=== PATIENT | male | born 2005 | race Caucasian/White ===

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

== ENCOUNTER 2025-02-12 13:02 | Emergency (ER) | payer OTHER, SELFPAY ==
[2025-02-12 13:07] VITALS: BP 132/70; PULSE 85; RESP 14; TEMP 36.4; O2SAT 98; BMI 39.0
--- NOTE | 2025-02-12 13:09 | ED.GENADULT ---
HPI - General Adult General Chief complaint: Skin/Abscess/Foreign Body Stated complaint: Pain on left leg and red dots on both legs Time Seen by Provider: 02/12/25 16:48 Source: patient Mode of arrival: ambulatory Limitations: no limitations History of Present Illness ED Provider: Merrick Hassan HPI narrative: 19 yold male presents to the ED for presents to the ED for bilateral lower extremity rash for one week. Patient denies any leg pain, leg swelling, fever, chills, recent trauma, recent travel, lip swelling, shortness of breath, tongue swelling, or any exposure to any known allergens. She denies any chest pain or shortness of breath. Related Data Home Medications ?Medication ?Instructions ?Recorded ?Confirmed sodium chloride 0.65 % nasal spray spray intranasal 09/22/23 09/22/23 aerosol (Deep Sea Nasal) Previous Rx's ?Medication ?Instructions ?Recorded carbamide peroxide 6.5 % ear drops 10 drp otic (ears) Q12H 4 days #15 09/03/23 (Debrox) mL loratadine 10 mg tablet (Allergy 10 mg PO DAILY #30 tabs 09/03/23 Relief (loratadine)) sodium chloride 0.65 % nasal drops 2 drp intranasal Q2H PRN dry nasal 09/03/23 ([place] Saline) passages; stuffy nose #50 mL albuterol sulfate 90 mcg/actuation 2 puff inhalation Q4-6H PRN 09/18/23 aerosol inhaler shortness of breath or wheezing #8.5 grams benzonatate 200 mg capsule 200 mg PO TID PRN cough 7 days #21 09/18/23 caps famotidine 40 mg tablet 40 mg PO BEDTIME #30 tabs 09/22/23 Allergies Allergy/AdvReac Type Severity Reaction Status Date / Time environmental allergies Allergy Intermediate Nasal Verified 02/12/25 13:07 congestion Review of Systems Review of Systems: Rash on bilateral lower extremities Yes all other systems are reviewed and are negative PMFSH Past Medical History Medical History Allergic rhinitis Social History Social History Household Members Other:: mom dad bro sis younger Housing: Apartment Advance Directives: No Advance Directives Information Provided: No Physical Exam ED Vital Signs: Vital Signs - 24 hr 02/12/25 13:07 02/12/25 18:06 02/12/25 19:31 Temperature 97.6 F 98.2 F Pulse Rate 85 75 75 Respiratory Rate 14 18 18 Blood Pressure 132/70 132/84 132/84 Pulse Oximetry 98 100 100 Oxygen Delivery Method Room Air Room Air Room Air BMI result Body Mass Index 39.0 Const General: cooperative, healthy appearing, comfortable, no acute distress, well developed, alert, awake and Physically active Orientation/consciousness: patient oriented x3 [facility] Head: Yes normal to inspection, Yes No palpable skull fracture present, Yes normocephalic and Yes atraumatic Eyes General: appearance normal, both eyes and all related structures Neck Neck: Yes normal visual inspection, Yes full ROM, Yes no lymphadenopathy, Yes no meningeal signs, Yes trachea midline, Yes supple, No anterior neck swelling and No tender Chest Chest palpation & inspection: normal inspection of the chest and normal palpation of entire chest wall Resp Effort & Inspection: normal respiratory effort and able to speak in complete sentences Auscultation: clear to auscultation bilaterally Cardio Jugular venous distension: no JVD Heart sounds: S1 normal heart sound present and S2 normal heart sound present GI Inspection: Yes normal to inspection Palpation (GI): Soft to palpation, not firm, nontender, no guarding and not rigid General: Yes no CVA tenderness Back/Spine/Pelvis Back: no CVA tenderness and No back tenderness Skin General skin exam: no rashes or lesions noted, elasticity normal and turgor normal Neuro General: patient oriented x3, gait normal, tone normal, moves all extremities, Normal light touch and pain sensation, no meningeal signs, no focal motor deficits, CN's II-XI intact bilaterally and normal sensation to monofilament Extrem Other: Negative for tenderness on palpation. Negative for weeping discharge or foul odor. Negative for any tenderness or calf pain. Negative for any thigh tenderness on palpation. Negative for any ecchymosis, crepitus, deformity, hotness, or coldness. Patient denies rash being itchy. Vascular motor neuro exam intact General: Yes normal to inspection and Yes full ROM Psych Appearance: grossly normal, well kempt and not disheveled Course Course Course Narrative: This is a rapid medical exam performed by Jyotsna Lemus NP: Additional HPI, ROS, PE not included below will be deferred to primary provider. Patient is a 19-year-old male presenting to the ED with complaint of left upper leg pain as well as rash to bilateral lower legs for the past week. Denies fevers/chills/body aches. Denies any prior history of IV drug use. Denies chest pain or dyspnea. States rash is not pruritic, not painful. Plan: Labs Medical Decision Making Medical Decision Making [facility] Narrative: 19-year-old male presents to ED for bilateral lower extremity non itchy rash. Patient denies any pain anywhere in the body. Patient denies any insect bite. Rash appears like petechiae. Coags are normal. Labs normal. ESR CRP added. 7:20pm: ESR CRP came back negative. Patient informed to follow up with primary care provider. Not suspecting cellulitis, DVT, osteomyelitis, necrotizing fasciitis, arterial occlusion, compartment syndrome, or any other life-threatening etiology. Differential Diagnosis Differential Diagnoses: The differential diagnosis associated with the presentation includes (Petechiae, purpura, cellulitis, hives) Admission/Observation Consideration of admission/observation: Escalation of care including admission/observation considered Lab Data [facility] Lab Attestation statement: I reviewed the patient's lab results. 02/12/25 13:44 02/12/25 13:44 Labs: Lab Results 02/12/25 Range/Units 13:44 WBC 7.6 (4.8-10.8) X10*3/uL RBC 4.92 (4.60-5.80) X10*6/uL Hgb 13.1 L (14.0-18.0) g/dl Hct 40.4 L (42.0-52.0) % MCV 82.1 (80.0-98.0) fL MCH 26.6 L (27.0-33.0) pg MCHC 32.4 (31.0-36.0) g/dl RDW 13.1 (11.0-16.0) % Plt Count 294 (160-400) X10*3/uL MPV 11.0 (9.4-12.4) fL Immature Gran % (Auto) 0.5 H (0.0-0.4) % Neut % (Auto) 64.7 (45-73) % Lymph % (Auto) 26.5 (20-40) % Eddy % (Auto) 6.2 (2-11) % Eos % (Auto) 1.3 (0-4) % Baso % (Auto) 0.8 (0-2) % Lymph # (Auto) 2.0 (1.2-4.9) X10*3/uL Eddy # (Auto) 0.5 (0.1-1.2) X10*3/uL Eos # (Auto) 0.1 (0.0-0.4) X10*3/uL Baso # (Auto) 0.1 (0.0-0.2) X10*3/uL Abs Immat Gran (auto) 0.04 H (0.00-0.03) X10*3/uL Absolute Neuts (auto) 4.9 (2.0-8.3) x10*3/uL Absolute Nucleated RBC 0.000 (0.0-0.012) X10*3/uL Nucleated RBC % (auto) 0.0 (0.0-0.2) /100WBC ESR 10 (0-15) MM/HR PT 12.2 (10.9-12.4) SEC INR 1.1 (0.9-1.1) Sodium 140 (135-145) mmol/L Potassium 4.4 (3.3-5.1) mmol/L Chloride 107 (96-108) mmol/L Carbon Dioxide 27 (22-29) mmol/L Anion Gap 10 L (12-20) BUN 10 (9-16) mg/dL Creatinine 0.61 (0.5-1.4) mg/dL Estim Creat Clear Calc 233.6 Estimated GFR > 60 Random Glucose 106 (60-115) mg/dL Calcium 9.3 (8.4-10.2) mg/dL Total Bilirubin 0.2 (0.0-1.0) mg/dL AST 17 (5-37) U/L ALT 15 (0-40) U/L Alkaline Phosphatase 95 (39-117) U/L C-Reactive Protein 0.21 (< or = 0.50) mg/dL Total Protein 7.3 (6.5-8.0) g/dL Albumin 4.5 (3.5-5.0) g/dL Independent Historian Clinical information obtained from an independent historian. History obtained from or confirmed by: Other (patient) Discharge Plan Discharge Clinical Impression: Rash, Petechiae Patient Disposition: Home, Self-Care Instructions: Acute Rash (ED) Additional Instructions: Recommend follow-up with primary care provider. Your labs came back reassuring. Return to the ED immediately for worsening rash, swelling of extremities, red streaks, pus discharge, foul odor, fever, chills, calf pain, bluish black discoloration, chest pain, shortness of breath, or any other concerning symptoms. Prescriptions: No Action albuterol sulfate 90 mcg/actuation HFA aerosol inhaler 2 puff inhalation Q4-6H PRN (Reason: shortness of breath or wheezing) Qty: 8.5 0RF benzonatate 200 mg capsule 200 mg PO TID PRN (Reason: cough) 7 Days Qty: 21 0RF acetaminophen 325 mg tablet 325 mg PO ONCE Qty: 1 0RF Debrox 6.5 % drops 10 drp otic (ears) Q12H 4 Days Qty: 15 0RF [place] Saline 0.65 % drops 2 drp intranasal Q2H PRN (Reason: dry nasal passages; stuffy nose) Qty: 50 2RF loratadine [Allergy Relief (loratadine)] 10 mg tablet 10 mg PO DAILY Qty: 30 0RF Deep Sea Nasal 0.65 % aerosol,spray intranasal famotidine 40 mg tablet 40 mg PO BEDTIME Qty: 30 0RF Stand Alone Forms: Work/School Release Interventions: ED Discharge Assessment Last Done: 02/12/25 19:31 Discharge Date/Time: 02/12/25 19:31 Print Language: Amharic
[2025-02-12 13:48] LABS: MANUAL DIFF FLAG NO
[2025-02-12 13:51] LABS: Hematocrit 40.4 % (42.0-52.0); Hemoglobin 13.1 g/dl (14.0-18.0); Imm Gran Abs Auto 0.04 X10*3/uL (0.00-0.03); Imm Gran Pct Auto 0.5 % (0.0-0.4); Lymphocytes Absolute Auto 2.0 X10*3/uL (1.2-4.9); Mean Corpuscular HGB Conc 32.4 g/dl (31.0-36.0); Mean Corpuscular Hemoglobin 26.6 pg (27.0-33.0); Mean Corpuscular Volume 82.1 fL (80.0-98.0); NRBC Abs Auto 0.000 X10*3/uL (0.0-0.012); NRBC Pct Auto 0.0 /100WBC (0.0-0.2); Platelet Count 294 X10*3/uL (160-400); Red Blood Count 4.92 X10*6/uL (4.60-5.80); White Blood Count 7.6 X10*3/uL (4.8-10.8)
[2025-02-12 13:55] LABS: INTERNATIONAL NORM RATIO 1.1 (0.9-1.1); Prothrombin Time 12.2 SEC (10.9-12.4)
[2025-02-12 14:04] LABS: Alanine Aminotransferase 15 U/L (0-40); Albumin Level 4.5 g/dL (3.5-5.0); Alkaline Phosphatase 95 U/L (39-117); Anion Gap 10 (12-20); Aspartate Amino Transferase 17 U/L (5-37); Blood Urea Nitrogen 10 mg/dL (9-16); Calcium 9.3 mg/dL (8.4-10.2); Carbon Dioxide 27 mmol/L (22-29); Chloride 107 mmol/L (96-108); Creatinine Clr Calc Pharmacy 233.6; Estimated Glomerular Filt Rate > 60; Potassium 4.4 mmol/L (3.3-5.1); Sodium 140 mmol/L (135-145); Total Protein 7.3 g/dL (6.5-8.0)
--- OUTSIDE RECORDS SUMMARY | 2025-02-12 16:22 | XMS_ITS | Encounter Summary ---
Author Organization [facility] Address [address] [place] [address] Phone Care Team Providers Care Wheel And Pinion Inspector Name Role Phone Verona Saavedra MD Primary Care Provider Encounter Details Date Type Department Care Team (Late st Contact Info) Description 03/28/2013 Documentation [facility] Family Medicine [address] [place], [place] [id number] Family Medicine, Physician [address] [place], [place] [phone] Social History Tobacco Use Types Packs/Day Years Used Date Smoking Tobacco: Never Assessed Sex and Gender Information Value Date Recorded Sex Assigned at Not on file Legal Sex Male 5:15 PM EDT Gender Identity Not on file Sexual Orientation Not on file documented as of this encounter Plan of Treatment Not on file documented as of this encounter Visit Diagnoses Not on filedocumented in this encounter Care Teams Wheel And Pinion Inspector Relationship Specialty Start Date End Date Verona Saavedra MD [address] [facility] [place] [id number] PCP - General 01/02/17 12/27/24 documented as of this encounter
--- OUTSIDE RECORDS SUMMARY | 2025-02-12 16:22 | XMS_ITS | Clinical Summary ---
Author Organization [facility] Address [address] [place] [id number] Phone Care Team Providers Care Central Office Repairer Supervisor Name Role Phone Unavailable Primary Care Provider Unavailabl e Allergies No known active allergies Medications No known medications Active Problems Problem Noted Date Diagnosed Date Need for case management follow-up 04/24/2020 Overview (04/24/2020): STD screen not done due to national shortage of tests Depression 03/10/2018 BMI (body mass index), pediatric, > 99% for age 1204/27/2017 Immunizations Immunization Administration Dates Next Due DTaP 12/18/2009 DTaP / Hep B / IPV 2005,2005, 005 DTaP 5 06/12/2006 HPV Vaccine 9 Valent 04/27/2017,04/25/2016 Hep A, ped/adol 11/09/2006,03/17/2006 Hep B, ped/adol 2005 Hib (HbOC) 06/12/2006,2005 Hib (PRP-T) 2005,2005 IPV 12/18/2009 Influenza, injectable, MDCK, preservative free, quadrivalent 04/25/2016 Influenza, injectable, quadrivalent 04/23/2015,1 06/18/2013 Influenza, injectable, quadr ivalent, preservative free 05/14/2021,04/24/2020,03/09/2018,04/27,06/10/2013 MMR 12/18/2009 MMRV 03/17/2006 Meningococcal Conj (Menactra) MCV4P 05/14/2021,1 06/26/2015 Pneumococcal Conjugate 06/12/2006,2005,2005,05/12 Tdap 04/25/2016 Varicella 12/18/2009 Family History Medical History Relation Name Comments Diabetes Maternal Grandmother Seizures Maternal Grandmother Relation Name Status Comments Brother Jacek Alive Brother: Alive and well Father Jonathan Howard Alive Father: Alive and well Half-Sister Alive Half sister (M) : Alive and well Maternal Grandmother Mother eLigha Howard Alive Mother: Alive a nd well Other No family histo ry of Developmental dislocation of hip, No family history of *Heart Disease, No family history of Autism, No family history of Seizure disorder, No family history of *Sudden /GA under 55, No family history of Strabismus/amblyopia, No family history of Sudden /GA under age 55, No family history of *Dental caries, Family history of *CVA/Stroke, No family history of *Thrombophilia, No family history of Deafness, No family history of Obesity, No family history of ADD/ADHD Sister Kristy Alive Sister: Alive a nd well Social History Tobacco Use Types Packs/Day Years Used Date Smoking Tobacco: Never Hunger/Food Answer Date Recorded In the last 12 months, did y ou or your family ever eat less than you felt you should because there wasn't enough money for food? No 05/14/2021 Stable Housing Answer Date Recorded Are you worried that in the next 2 months you may not have stable housing? No 05/14/2021 Transportation Concerns Answer Date Rec orded In the last 12 months, have you or your family ever had to go without healthcare because you didn't have a way to get there? No 05/14/2021 Hazards in Home Answer Date Recorded Think about the place you li ve. Do you have problems with any of the following? Pests (mice or roaches), mold, no/not working smoke detectors, water leaks, no window guards. No 2020 Financing Utilities Answer Date Recorde d In the last 12 months, has t he electric, gas, oil, or water company threatened to shut off your services in your home? No 05/14/2021 Safety at Home Answer Date Recorded Are you or your family worried about feeling saf e in your home? No 05/14/2021 Outside Support Answer Date Recorded Do you feel that you need mo re support from other people or programs to help you care for yourself or your family? No 05/14/2021 Understanding Health Concerns Answer Da te Recorded Do you need help understandi ng your or your child's healthcare needs (diagnosis, medications, plan, etc.)? No 05/14/2021 Financing Health Concerns Answer Date R ecorded In the last 12 months, was t here a time when your child needed to see a doctor or get medications or supplies but could not because of cost? No 05/14/2021 Missing School or Work Answer Date Uriel rded Did you or your child miss s chool or work because of a health problem that could have been avoided? No 05/14/2021 Sex and Gender Information Value Date Recorded Sex Assigned at Not on file Legal Sex Male 5:15 PM EDT Gender Identity Not on file Sexual Orientation Not on file Last Filed Vital Signs Vital Sign Reading Time Taken Comments Blood Pressure 112/74 05/14/2021 1:28 PM EST Pulse 91 05/14/2021 1:28 PM EST Temperature 36.8 C (98.2 F) 05/14/2021 1:28 PM EST Respiratory Rate - - Oxygen Saturation - - Inhaled Oxygen Concentration - - Weight 115 kg (254 lb 3.2 oz) 05/14/2021 1:28 PM EST Height 172.7 cm (5' 8 ) 05/14/2021 1:28 PM EST Body Mass Index 38.65 05/14/2021 1:28 PM EST Body Mass Index Percentile 99.57% 05/14/2021 1:2 8 PM EST Growth Chart: [facility] (Boys, 2-2 0 Years) Plan of Treatment Health Maintenance Due Date Last Done Comments Men B Vaccine (1 of 2 - Standard) 2021 Influenza Vaccines (#1) 2024 05/14/20, 04/24/2020, 03/09/2018, Additional history exists COVID-19 Vaccine (3 - 2024-2 6 season) 2025 01/30/2021, 12/31/2020 DTaP,Tdap,and Td Vaccines (7 - Td or Tdap) 04/25/2026 04/25/2016, 12/18/2009, 06/12/2006, Additional history exists Hepatitis B Vaccines Completed 2005, 2005, 2005, Additional history exists HIB Vaccines Completed 06/12/2006, 09/22, 2005, Additional history exists Pneumococcal Vaccine Completed 06/12/2006, 2005, 2005, Additional history exists Hepatitis A Vaccines Completed 11/09/2006, 03/17/20 IPV Vaccines Completed 12/18/2009, 09/22, 2005, Additional history exists MMR Vaccines Completed 12/18/2009, 03/17/2006 Varicella Vaccines Completed 12/18/2009, 03/17/2006 HPV Vaccines Completed 04/27/2017, 04/25/2016 Meningococcal Vaccine Completed 05/14/2021, 016
--- OUTSIDE RECORDS SUMMARY | 2025-02-12 16:22 | XMS_ITS | Encounter Summary ---
Author Organization [facility] Address [address] [place] [address] Phone Care Team Providers Care Mainframe Software Developer Name Role Phone Verona Saavedra MD Primary Care Provider Encounter Details Date Type Department Care Team (Late st Contact Info) Description 01/08/2017 Conversion Encounter [facility] [place] [address] [place] [address] Social History Tobacco Use Types Packs/Day Years [...] on filedocumented in this encounter Care Teams Mainframe Software Developer Relationship Specialty Start Date End Date Verona Saavedra MD [address] [place] [address] PCP - General 01/02/17 12/27/24 documented as of this encounter
--- OUTSIDE RECORDS SUMMARY | 2025-02-12 16:22 | XMS_ITS | Encounter Summary ---
Author Organization [facility] Address [address] [place] [address] Phone Care Team Providers Care Tug Boat Captain Name Role Phone Verona Saavedra MD Primary Care Provider Encounter Details Date Type Department Care Team (Late st Contact Info) Description 06/16/2018 Patient Outreach [facility] [address] [place] [address] Rodriguez Delaney [place] Social History Tobacco Use Types Packs/Day Years Used Date Smoking Tobacco: Never Hunger/Food Answer Date Recorded No 06/16/2018 Stable Housing Answer Date Recorded 0 06/16/2018 Transportation Concerns Answer Date Rec orded No 06/16/2018 Hazards in Home Answer Date Recorded Yes 06/16/2018 Financing Utilities Answer Date Recorde d No 06/16/2018 Safety at Home Answer Date Recorded No 06/16/2018 Outside Support Answer Date Recorded Yes 06/16/2018 Understanding Health Concerns Answer Da te Recorded No 06/16/2018 Financing Health Concerns Answer Date R ecorded No 06/16/2018 Missing School or Work Answer Date Uriel rded No 06/16/2018 Sex and Gender Information Value Date Recorded Sex Assigned at Not on file Legal Sex Male 5:15 PM EDT Gender Identity Not on file Sexual Orientation Not on file documented as of this encounter Plan of Treatment Not on file documented as of this encounter Visit Diagnoses Not on filedocumented in this encounter Care Teams Tug Boat Captain Relationship Specialty Start Date End Date Verona Saavedra MD [address] [place] [address] PCP - General 01/02/17 12/27/24 documented as of this encounter
--- OUTSIDE RECORDS SUMMARY | 2025-02-12 16:22 | XMS_ITS | Encounter Summary ---
Author Organization [facility] Address [address] [place] [address] Phone Care Team Providers Care Transmission Supervisor Name Role Phone Verona Saavedra MD Primary Care Provider [phone] Encounter Details Date Type Department Care Team (Late st Contact Info) Description 12/31/2012 Documentation [facility] [place] [facility] [address] [place], [place] [id number] Family Medicine, Physician [address] [place], [place] [id number] Social History Tobacco Use Types Packs/Day Years [...] on filedocumented in this encounter Care Teams Transmission Supervisor Relationship Specialty Start Date End Date Verona Saavedra MD [address] [facility] [place] [address] PCP - General 01/02/17 12/27/24 documented as of this encounter
[2025-02-12 18:06] VITALS: BP 132/84; PULSE 75; RESP 18; O2SAT 100
--- NOTE | 2025-02-12 18:55 | PC.NURSE ---
spoke with Yuli in lab re: ESR, per lab, specimen should be resulted in 20 min
[2025-02-12 19:31] VITALS: BP 132/84; PULSE 75; RESP 18; TEMP 36.8; O2SAT 100
== END 2025-02-12 19:31 | disposition home or self-care (01) ==
PROVIDERS: Physician Assistant; Registered Nurse Emergency; Emergency Provider Student in an Organized Health Care Education/Training Program
DX: R23.3 Spontaneous ecchymoses (principal); M79.605 Pain in left leg; Z79.899 Other long term (current) drug therapy
CPT/HCPCS: 36415; 80053; 85025; 85610; 85652; 86140; 99283